=== PATIENT | male | born 1995 | race Caucasian/White ===

== ENCOUNTER 2020-01-26 23:10 | Emergency (ER) | payer OTHER, SELFPAY ==
[~2020-01-26] VITALS: Ht 180.3 cm; Wt 63.2 kg
[2020-01-27 00:27] VITALS: BP 122/65
== END 2020-01-27 00:27 | disposition home or self-care (01) ==
LOC: ED 23:10
DX: R07.89 Other chest pain (principal); F41.9 Anxiety disorder, unspecified; Z20.828 Contact with and (suspected) exposure to other viral communicable diseases
CPT/HCPCS: Q0092